=== PATIENT | female | born 1965 | race Caucasian/White ===

== ENCOUNTER → 2019-12-22 07:42 | Outpatient (CLI) | payer BC, SELFPAY ==
--- NOTE | ~2019-12-22 | MMUS_ITS ---
EXAMINATION: MM diagnostic racheal BI w lyubov, US breast LT limited HISTORY: Follow-up left breast mass TECHNIQUE: Additional 3-D tomosynthesis images of the breasts were performed and synthetic 2-D images were generated. CAD analysis was submitted and interpreted. High resolution left breast ultrasound w as performed. COMPARISON: Comparison to multiple prior studies sequentially, with oldest reviewed study dated 06/10. BREAST PARENCHYMAL COMPOSITION: BREAST PARENCHYMAL COMPOSITION: The breasts are heterogeneously dense, which may obscure small masses . FINDINGS: MAMMOGRAPHIC FINDINGS: The right breast is stable without evidence for malignancy. There is a 1.6 cm circumscribed radioluce nt mass mid outer aspect of the left breast. ULTRASOUND: Left breast ultrasound: There are multiple simple and complicated cysts of the left breast, largest at 3:00, 5 cm from the ni pple measuring 1.5 cm maximum dimension. This corresponds to the mammographic finding. There is a clu ster of cysts at 4:00, 5 cm from the nipple. No sonographic evidence for malignancy. IMPRESSION: 1. No evidence for malignancy in either breast. Benign findings. 2. Routine yearly screening mammogram and regular clinical breast examination are recommended. BI-RADS Category 2: Benign finding(s). Reviewed, dictated and finalized at location A. IMPRESSION: 1. No evidence for malignancy in either breast. Benign findings. 2. Routine yearly screening mammogram and regular clinical breast examination a re recommended. BI-RADS Category 2: Benign finding(s).
== END ==
PROVIDERS: PCP Family Medicine; Visit Provider Obstetrics & Gynecology Gynecology
DX: R92.8 Other abnormal and inconclusive findings on diagnostic imaging of breast (principal)
CPT/HCPCS: 76642; 77062; 77066; G0279

== ENCOUNTER → 2021-06-03 16:01 | Outpatient (CLI) | payer BC, SELFPAY ==
--- NOTE | ~2021-06-03 | MM_ITS ---
EXAMINATION: MM screening racheal BI w lyubov HISTORY: Screening TECHNIQUE: Craniocaudal and mediolateral oblique 3-D tomosynthesis images were obtained and synthetic 2-D images were generated. CAD analysis was submitted and interpreted. COMPARISON: Comparison to multiple prior studies sequentially, with oldest reviewed study dated 07/11. BREAST PARENCHYMAL COMPOSITION: The breasts are extremely dense, which lowers the sensitivity of mamm ography FINDINGS: There is no evidence of suspicious mass, calcification, or architectural distortion to sugg est malignancy in either breast. There has been no suspicious interval change. IMPRESSION: 1. No mammographic evidence of malignancy. 2. Recommend routine screening mammography in one year. BI-RADS Category 1: Negative Reviewed, dictated and finalized at location A. L [employer]
== END ==
PROVIDERS: Visit Provider Nurse Practitioner
DX: Z12.31 Encounter for screening mammogram for malignant neoplasm of breast (principal)
CPT/HCPCS: 77063; 77067

== ENCOUNTER 2021-10-28 01:27 | Day surgery (SDC) | payer BC, SELFPAY ==
[2021-10-10 15:06] VITALS: BMI 26.0
--- NOTE | 2021-10-27 13:57 | PM.HPGS ---
History of Present Illness History of Present Illness Consent: Risks, benefits, and alternatives have been discussed and questions answered. Patient agrees to proceed with procedure. Chief complaint: neoplasm screening Narrative: Katie Zambrano is a 55 year old female Referred for colon cancer screening. About 3 years ago she had removal of a tubular adenoma. Review of Systems Review of Systems: All systems reviewed & are unremarkable except as noted in HPI and below PMFSH Past Medical History Medical History Adenomatous polyp of colon (08/23/18) BMI 27.0-27.9,adult Chronic depression Encounter for wellness examination in adult Folic acid deficiency (05/03/20) greater than 20 on 06/02/2021 Hypothyroidism, unspecified TSH slightly suppressed at 0.27 on 06/02/2021 Menopausal syndrome (hot flashes) Mixed hyperlipidemia total cholesterol 265, triglycerides 103, HDL 61, LDL 182 on 06/02/2021 Osteoarthritis involving multiple joints on both sides of body Seasonal allergic rhinitis Vitamin B12 deficiency anemia 1511 with hemoglobin 14.5 on 06/02/2021 Family History Family History Mother Diabetes mellitus Father Patient's father is , Onset Age: 62 Grandparent Family history of cardiovascular disease Acute myocardial infarction Social History Social History Smoking packs per day: 0.5 Smoking cigarettes per day: 10.0 Years smoked: 10 Smoking pack-years: 5.00 Smoking status: Former smoker Tobacco type: cigarettes Alcohol intake: current Drinks per week: 4 Substance use: never Substance use type: does not use Living arrangements: with family Spiritual care concerns: No Meds Home Medications and Allergies Home Medications Medication Instructions Recorded Confirmed Type cyanocobalamin (vitamin B-12) 2,000 mcg PO DAILY #90 tabs 05/11/20 10/28/21 Rx 2,000 mcg tablet folic acid 1 mg tablet 1 mg PO DAILY #90 tabs 05/17/21 10/28/21 Rx levothyroxine 100 mcg tablet 100 mcg PO DAILY #90 tabs 05/17/21 10/28/21 Rx meloxicam 15 mg tablet 15 mg PO DAILY PRN pain #90 tabs 05/17/21 10/28/21 Rx venlafaxine 75 mg capsule,extended 75 mg PO DAILY #90 caps 05/17/21 10/28/21 Rx release 24 hr (Effexor XR) sodium sul 1.479 gram-potas ch See Rx Instructions PO PER PKG DIR 09/27/21 10/28/21 Rx 0.188 gram-magnes sul 0.225 gram #24 tabs tablet (Sutab) calcium carbonate 600 mg calcium 600 mg PO DAILY 10/10/21 10/28/21 History (1,500 mg) tablet (Calcium) ferrous sulfate 325 mg (65 mg 325 mg PO DAILY 10/10/21 10/28/21 History iron) tablet magnesium 250 mg tablet 250 mg PO DAILY 10/10/21 10/28/21 History vit D3-folic acid-vit B2-B6-B12 1 tablet PO DAILY 10/10/21 10/28/21 History 2,000 unit-800 mcg-0.32 mg tablet Allergies Allergy/AdvReac Type Severity Reaction Status Date / Time tetracycline Allergy Unknown Urticaria Verified 10/28/21 06:42 Exam Resp: Auscultation: clear to auscultation bilaterally Cardio: Rate: regular rate Rhythm: regular rhythm GI: GI Palp: Yes Soft to palpation and No Tenderness to palpation present (GI) Assessment and Plan Assessment and plan (1) Colon cancer screening: Code(s): Z12.11 - Encounter for screening for malignant neoplasm of colon Status: Acute Assessment and Plan: Colonoscopy with possible biopsy or polypectomy or cautery or injection of substances.
[2021-10-28 06:35] VITALS: BP 114/76; PULSE 70; RESP 16; TEMP 36.4; O2SAT 98; BMI 26.3
[2021-10-28] MEDS: LACTATED RINGERS 1,000 ML 150 ML IV CONT (06:56)
--- NOTE | 2021-10-28 07:50 | WPDANESEPPF ---
Anes - Initial Pre Proc Eval Procedure: Operation Date: 10/28/21 08:00 Proposed Procedures p Screening Colonoscopy - Nirav Serrano MD Date/Time: 10/28/21 07:50 Surgeon: Nirav Serrano MD Pre Op Diagnosis: neoplasm screening Patient Data Age: 55 Gender: F Height: 1.68 m Weight: 73.9 kg Last Vital Signs Temp 97.6 F 10/28/21 06:35 Pulse 70 10/28/21 06:35 Resp 16 10/28/21 06:35 BP 114/76 10/28/21 06:35 Pulse Ox 98 10/28/21 06:35 O2 Del Method Room Air 10/28/21 06:35 Allergies Allergy/AdvReac Type Severity Reaction Status Date / Time tetracycline Allergy Unknown Urticaria Verified 10/28/21 06:42 Home Medications Medication Instructions Recorded Confirmed Type cyanocobalamin (vitamin B-12) 2,000 mcg PO DAILY #90 tabs 05/11/20 10/28/21 Rx 2,000 mcg tablet folic acid 1 mg tablet 1 mg PO DAILY #90 tabs 05/17/21 10/28/21 Rx levothyroxine 100 mcg tablet 100 mcg PO DAILY #90 tabs 05/17/21 10/28/21 Rx meloxicam 15 mg tablet 15 mg PO DAILY PRN pain #90 tabs 05/17/21 10/28/21 Rx venlafaxine 75 mg capsule,extended 75 mg PO DAILY #90 caps 05/17/21 10/28/21 Rx release 24 hr (Effexor XR) sodium sul 1.479 gram-potas ch See Rx Instructions PO PER PKG DIR 09/27/21 10/28/21 Rx 0.188 gram-magnes sul 0.225 gram #24 tabs tablet (Sutab) calcium carbonate 600 mg calcium 600 mg PO DAILY 10/10/21 10/28/21 History (1,500 mg) tablet (Calcium) ferrous sulfate 325 mg (65 mg 325 mg PO DAILY 10/10/21 10/28/21 History iron) tablet magnesium 250 mg tablet 250 mg PO DAILY 10/10/21 10/28/21 History vit D3-folic acid-vit B2-B6-B12 1 tablet PO DAILY 10/10/21 10/28/21 History 2,000 unit-800 mcg-0.32 mg tablet Patient hx anesthesia problems: none Family hx anesthesia problems: none Results Review: All pre-operative results and documents have been reviewed as part of the pre-operative evaluation. [facility] Past Medical History Medical History Adenomatous polyp of colon (08/23/18) BMI 27.0-27.9,adult Chronic depression Encounter for wellness examination in adult Folic acid deficiency (05/03/20) greater than 20 on 06/02/2021 Hypothyroidism, unspecified TSH slightly suppressed at 0.27 on 06/02/2021 Menopausal syndrome (hot flashes) Mixed hyperlipidemia total cholesterol 265, triglycerides 103, HDL 61, LDL 182 on 06/02/2021 Osteoarthritis involving multiple joints on both sides of body Seasonal allergic rhinitis Vitamin B12 deficiency anemia 1511 with hemoglobin 14.5 on 06/02/2021 Family History Family History Mother Diabetes mellitus Father Patient's father is , Onset Age: 62 Grandparent Family history of cardiovascular disease Acute myocardial infarction Social History Social History Smoking packs per day: 0.5 Smoking cigarettes per day: 10.0 Years smoked: 10 Smoking pack-years: 5.00 Smoking status: Former smoker Tobacco type: cigarettes Alcohol intake: current Drinks per week: 4 Substance use: never Substance use type: does not use Living arrangements: with family Spiritual care concerns: No Anes - Eval Final PreProcedure Day of Procedure 10/28/21 07:50 Patient weight: normal Heart: regular rate and rhythm Lungs: clear to auscultation Airway: Mallampati scale class II Neurological: alert and oriented Last oral intake: >/= 8 hours ASA classification: II Emergent: no Anesthetic plan: proceed Anesthesia type and monitoring: general GIVS and standard monitoring Results Review: All pre-operative results and documents have been reviewed as part of the pre-operative evaluation. Informed Consent: The patient's anesthetic plan and its attendant risks and benefits were discussed with the patient/family/POA. Questions were solicited and answers provided
[2021-10-28 08:15] VITALS: BP 98/65; PULSE 50; RESP 16; O2SAT 98
[2021-10-28 08:25] VITALS: BP 115/77; PULSE 68; RESP 16; O2SAT 100
[2021-10-28 08:35] VITALS: BP 127/83; PULSE 64; RESP 18; O2SAT 100
== END 2021-10-28 08:39 | disposition home or self-care (01) ==
PROVIDERS: PCP Family Medicine; Visit Provider Internal Medicine Gastroenterology
PROC: 0DJD8ZZ Inspection of Lower Intestinal Tract, Via Natural or Artificial Opening Endoscopic (ICD-10-PCS; CPT 45378; principal; 2021-10-28 08:00)
DX: Z12.11 Encounter for screening for malignant neoplasm of colon (principal); Z86.010 Personal history of colon polyps; E03.9 Hypothyroidism, unspecified; E78.5 Hyperlipidemia, unspecified; E53.8 Deficiency of other specified B group vitamins; Z87.891 Personal history of nicotine dependence
CPT/HCPCS: 45378; J2001; J2704; J7120

== ENCOUNTER 2022-12-05 12:59 | Outpatient (CLI) | payer BC, SELFPAY ==
--- NOTE | ~2022-12-05 | MR_ITS ---
MR breast BI wo/w con 12/06/2022 08:27 CDT INDICATION: Dense breasts. TECHNIQUE: MRI of the breasts perform using standard protocol pre-and post IV contrast with the follo wing sequences: Axial T2 STIR, axial T1, axial vibrant T1 with fat suppression precontrast and multip hasic postcontrast. COMPARISON: Mammogram dated 06/03/2021 and diagnostic mammogram with ultrasound dated 12/22/2019 FINDINGS: Right breast: There is a symmetric bilateral nonmasslike background enhancement. There are small bila teral breast cysts. There are no abnormalities on the precontrast sequences. There is mild background parenchymal enhancement. In the lower outer quadrant of the right breast at 7:00, 4.3 cm posterior t o the nipple there is a 3 mm foci exhibiting plateau enhancement, likely benign. No evidence of signa l abnormalities in the axillary or internal mammary node distributions. LEFT BREAST: No signal abnormalities on precontrast sequences. There is mild background parenchymal enhancement. In the lower outer quadrant of the left breast at 6:00, 5.7 cm posterior to the nipple t here is a foci measuring 4 mm with rapid washout enhancement. No evidence of signal abnormalities in the axillary or internal mammary node distributions.] IMPRESSION: 1: Small bilateral enhancing foci, largest in the left breast measuring 4 mm. Although these are like ly benign, follow-up diagnostic bilateral mammogram with bilateral breast ultrasound with attention t o these areas is recommended. BI-RADS CATEGORY 0 - INCOMPLETE STUDY, NEED ADDITIONAL IMAGING EVALUATION. Reviewed, dictated and finalized at location A. IMPRESSION: 1: Small bilateral enhancing foci, largest in the left breast measuring 4 mm. A lthough these are likely benign, follow-up diagnostic bilateral mammogram with bilateral breast ultrasound with attention to these areas is recommended. BI-RADS CATEGORY 0 - INCOMPLETE STUDY, NEED ADDITIONAL IMAGING EVALUATION.
== END 2022-12-05 13:00 | disposition home or self-care (01) ==
PROVIDERS: PCP Family Medicine; Visit Provider Obstetrics & Gynecology Gynecology
DX: R92.2 Inconclusive mammogram (principal); R92.8 Other abnormal and inconclusive findings on diagnostic imaging of breast
CPT/HCPCS: 77049; A9577; C8908

== ENCOUNTER → 2022-12-07 12:16 | Outpatient (CLI) | payer BC, SELFPAY ==
--- NOTE | ~2022-12-07 | DEXA_ITS ---
Bone Density Report Name: BRANDT HAIDER Age: 57 Sex: Female Ethnicity: White Date of : 1965 Indication: postmenopausal; screening for osteoporosis; height loss; Referring Provider: Roselia, Veronica Study: Bone densitometry was performed. Exam Date: December 07, 2022 Accession number: [id number] Bone Density: Region BMD T-score Z-score Classification AP Spine (L1-L4) 1.070 0.2 1.3 Normal Femoral Neck (Left) 0.940 0.8 1.9 Normal Total Hip (Left) 1.106 1.3 2.0 Normal Femoral Neck (Right) 0.920 0.6 1.7 Normal Total Hip (Right) 1.095 1.3 1.9 Normal Total Hip Mean 1.101 1.3 2.0 Normal World Health Organization criteria for BMD impression classify patients as: Normal (T-score at or above -1.0), Osteopenia (T-score between -1.0 and -2.5), or Osteoporosis (T-score at or below -2.5). 10-year Fracture Risk: FRAX not reported because: All T-scores for Spine Total, Hip Total, Femoral Neck at or above -1.0 Clinical Information Provided by Patient: Has used the following medications: Vitamin D, Calcium, Levothyroxine Patient maximum height was 67.0 Menopause Age: 55 No regular weight bearing exercise Drinks caffeinated beverages Onset of menses at age 16 Number of children 2 Missed period for more than 6 months in a row Impression: The patient has normal bone mass. Discussion: BONE DENSITY IS ABOVE THE MINIMUM DESIRABLE LEVEL AT ALL SKELETAL SITES TESTED. This patient?s bone mineral density is above the minimum desirable level (T-score -1.0 or better) at all sites measured. The patient should follow a healthful lifestyle (good nutrition with adequate calcium and vitamin D, and appropriate weight-bearing exercise). Follow-Up: Consider repeating this study in 5 years or sooner if there is some new clinical indication. Reported by: CARLA on 12/07/2022 12:49:00 PM. Reviewed, dictated and finalized at location Carlyn GUAMAN
== END ==
PROVIDERS: PCP Family Medicine; Visit Provider Nurse Practitioner
DX: Z13.820 Encounter for screening for osteoporosis (principal)
CPT/HCPCS: 77080

== ENCOUNTER → 2023-05-10 08:29 | Outpatient (CLI) | payer BC, SELFPAY ==
--- NOTE | ~2023-05-10 | MMUS_ITS ---
EXAMINATION: MM diagnostic racheal BI w lyubov, US breast BI complete HISTORY: Abnormal enhancing foci seen on prior MRI examination. TECHNIQUE: Additional 3-D tomosynthesis images of the breasts were performed and synthetic 2-D images were generated. CAD analysis was submitted and interpreted. High resolution complete bilateral breas t ultrasound was performed. COMPARISON: Comparison to multiple prior studies sequentially, with oldest reviewed study dated 08/01. BREAST PARENCHYMAL COMPOSITION: The breasts are extremely dense, which lowers the sensitivity of mamm ography FINDINGS: MAMMOGRAPHIC FINDINGS: The breasts are stable. No suspicious masses, calcifications or architectural distortion are identifi ed in either breast to suggest malignancy. ULTRASOUND: Complete bilateral US of all 4 quadrants of the breasts and retroareolar region was reviewed. Right breast: At 10:00 near the areola there is a cluster of cysts measuring up to 1.2 cm. At 10:00, 6 cm from the nipple there is an oval slightly irregular hypoechoic mass with parallel orientation, n o significant posterior features and no internal vascularity measuring 6 mm. Left breast: At 2:00, 3 cm from the nipple, there is a 4 mm cyst. At 4:00, 5 cm from the nipple there is a slightly irregular solid hypoechoic 6 mm mass without significant posterior features or interna l vascularity. IMPRESSION: 1. Suspicious bilateral breast masses located in the right breast at 10:00, 6 cm from the nipple chi uring 6 mm and in the left breast at 4:00, 5 cm from the nipple measuring 6 mm. 2. Bilateral ultrasound-guided breast vacuum biopsy recommended. BI-RADS category 4, suspicious findings. Reviewed, dictated and finalized at location A. [employer]CH[employer]IC IMPRESSION: 1. Suspicious bilateral breast masses located in the right breast at 10:00, 6 c m from the nipple measuring 6 mm and in the left breast at 4:00, 5 cm from the nipple measuring 6 mm. 2. Bilateral ultrasound-guided breast vacuum biopsy recommended. BI-RADS category 4, suspicious findings.
== END ==
PROVIDERS: PCP Obstetrics & Gynecology Gynecology; Visit Provider Obstetrics & Gynecology Gynecology
DX: R92.8 Other abnormal and inconclusive findings on diagnostic imaging of breast (principal)
CPT/HCPCS: 76641; 77062; 77066; G0279